=== PATIENT | male | born 1990 | race Caucasian/White ===

== ENCOUNTER 2019-01-08 11:03 | Emergency (ER) | payer BC ==
[2019-01-08] MEDS ORDERED: IBUPROFEN 600 MG TABLET PO ONE (11:36)
--- NOTE | 2019-01-08 11:40 | ER Document Report ---
HPI - HPI Time Seen by Provider: 01/08/19 11:20 Pain Level: 1 Context: Patient is a 28-year-old male who presents to the emergency department with a chief complaint of a discomfort to the back of his neck and head. Patient states that 3 days ago he was brushing his teeth when he aggravated his gag reflex and started to dry heave. Patient states that as he was straining he developed pain to the neck that was a sharp shooting in nature and radiated to the back of his head. Patient at that time denied visual changes or any other concerning signs or symptoms. Patient states since then he has been fine until this morning when he sneezed and developed that same type of sharp shooting pain to the back of his head. Patient states he did not have any nausea vomiting or diarrhea. Patient denies visual changes. Patient denies numbness or tingling to the upper or lower extremities. Patient denies dizziness or severe headache. Patient states he is having a mild headache currently that feels like a throbbing to the back of his head. Past Medical History - General Information source: Patient - Social History Smoking Status: Unknown if Ever Smoked Frequency of alcohol use: None Lives with: Family Family History: Reviewed & Not Pertinent - Past Medical History Cardiac Medical History: Reports: None Pulmonary Medical History: Reports: None EENT Medical History: Reports: None Neurological Medical History: Reports: None Endocrine Medical History: Reports: None Renal/ Medical History: Reports: None Malignancy Medical History: Reports None GI Medical History: Reports: None Musculoskeletal Medical History: Reports None Skin Medical History: Reports None Psychiatric Medical History: Reports: None Traumatic Medical History: Reports: None Infectious Medical History: Reports: None Surgical Hx: Negative Vertical Provider Document - CONSTITUTIONAL Agree With Documented VS: Yes Exam Limitations: No Limitations General Appearance: No Apparent Distress Notes: GENERAL: Well-appearing, well-nourished and in no acute distress. HEAD: Atraumatic, normocephalic. EYES: Pupils equal round and reactive to light, extraocular movements intact, sclera anicteric, conjunctiva are normal. ENT: TMs normal, nares patent, oropharynx clear without exudates. Moist mucous membranes. NECK: Normal range of motion, supple without lymphadenopathy or JVD. LUNGS: Breath sounds clear to auscultation bilaterally and equal. No wheezes rales or rhonchi. HEART: Regular rate and rhythm without murmurs, rubs or gallops. ABDOMEN: Soft, nontender, normoactive bowel sounds. No guarding, no rebound. No masses appreciated. BACK: No cervical, thoracic, lumbar midline tenderness. No saddle anesthesia, normal distal neurovascular exam. GENITOURINARY: Deferred. EXTREMITIES: Normal range of motion, no pitting or edema. No clubbing or cyanosis. NEUROLOGICAL: Cranial nerves II through XII grossly intact. Normal speech, normal gait. PSYCH: Normal mood, normal affect. SKIN: Warm, Dry, normal turgor, no rashes or lesions noted. Face symmetric. Tongue protrudes midline. Extraocular motions intact. Pupils are 2 mm and equally reactive. Normal speech, normal gait. 5 out of 5 strength in both the distal and proximal upper and lower extremities bilaterally. Sensation is grossly intact throughout. Finger to nose testing normal. Pronator drift normal. Course - Re-evaluation Re-evalutation: 01/08/19 11:36 Patient sitting upright in chair and is nontoxic-appearing. Patient states he is not currently having any neck pain. Patient denies numbness or tingling to his upper or lower extremities. Patient denies current visual changes or blurred vision. Patient states he has a mild throbbing to the back of his head which is about a 2 out of 5. I explained to the patient and I do not believe a CT is necessary at this time. I did discuss strict return precautions with the patient to include worse headache of his life, severe head or neck pain, high fever, neck stiffness, numbness or tingling to the upper or lower extremities, visual changes or any other concerning signs or symptoms. - Vital Signs Vital signs: Temp Pulse Resp BP Pulse Ox 98.1 F 74 18 140/66 H 98 01/08/19 11:13 01/08/19 11:13 01/08/19 11:13 01/08/19 11:13 01/08/19 11:13 Discharge - Discharge Clinical Impression: Strain of muscle of head Neck strain Qualifiers: Encounter type: initial encounter Qualified Code(s): S16.1XXA - Strain of muscle, fascia and tendon at neck level, initial encounter Condition: Stable Disposition: HOME, SELF-CARE Additional Instructions: Today you were seen in the emergency department for head and neck pain after a forceful event such as a sneeze. Your symptoms also did occur 3 days ago during a forceful event while dry heaving. Your symptoms appear to be consistent with a muscle strain. Please take Tylenol or ibuprofen for your headache. Return to the emergency department for worsening signs or symptoms to include a severe headache, uncontrollable vomiting, dizziness, visual changes, this numbness or tingling to the upper or lower extremities or any other concerning signs or symptoms. Please follow-up with your primary care physician. Forms: Return to Work Referrals: DARIUSZ DEE MD [Primary Care Provider] - Follow up as needed
[2019-01-08 12:03] VITALS: BP 122/78
== END 2019-01-08 11:52 | disposition home or self-care (01) ==
LOC: ER 11:03
DX: S09.11XA Strain of muscle and tendon of head, initial encounter (principal); S16.1XXA Strain of muscle, fascia and tendon at neck level, initial encounter; X58.XXXA Exposure to other specified factors, initial encounter
CPT/HCPCS: 99283